=== PATIENT | female | born 1980 | race African-American/Black ===

== ENCOUNTER 2019-08-23 20:43 | Emergency (ER) | payer OTHER, SELFPAY ==
[2019-08-23 20:45] VITALS: BP 141/85; PULSE 95; RESP 20; TEMP 36.4; O2SAT 100
--- NOTE | 2019-08-23 20:50 | ED.GENADULT ---
HPI - General Adult General Chief complaint: Unspecified Stated complaint: Possible medication sideeffects Time Seen by Provider: 08/23/19 20:50 Source: patient and RN notes reviewed Mode of arrival: other Limitations: no limitations History of Present Illness HPI narrative: Pt is a 38 y/o female who presents to the ED with c/o possible side effects from her antidepressant medication. Pt states that her sx began an hour ago. Pt has been taking Escitalopram Oxalate and she is on day 5. Pt took her last pill at 8:30 AM today. She notes that she feels as if she is having a panic attack. Pt had a hysterectomy [address] Israel. Pt is pre-menopausal. Pt denies drinking caffeine today, but she notes that she has been drinking plenty of water. Pt also reports hot flashes, dizziness, rapid heart rate, dry mouth, chills, and anxiety, but denies chest pain, fever, sore throat, cough, rhinorrhea, dysuria, frequent urination, diaphoresis, back pain, neck pain, and N/V/D. complaint: Possible side effect from medication Onset (ago): hour(s) (1) Severity: mild Associated symptoms: fever/chills and other (hot flashes, dizziness, rapid heart rate, dry mouth, anxiety) Related Data Home Medications Medication Instructions Recorded Confirmed escitalopram oxalate 5 mg PO DAILY 08/23/19 08/23/19 Allergies Allergy/AdvReac Type Severity Reaction Status Date / Time No Known Allergies Allergy Verified 08/23/19 20:57 Review of Systems Review of Systems: All systems reviewed & are unremarkable except as noted in HPI and below Constitutional: Constitutional: Reports chills, Denies fever(s) and Reports other (hot flashes) ENT: Reports dry mouth, Denies sore throat and Denies other (rhinorrhea) Cardiovascular: Cardiovascular: Denies chest pain, Denies diaphoresis and Reports rapid heart rate Gastrointestinal: Gastrointestinal: Denies diarrhea, Denies nausea and Denies vomiting Genitourinary: Genitourinary: Denies nocturia and Denies dysuria Musculoskeletal: Musculoskeletal: Denies back pain and Denies neck pain Neurologic: Reports dizziness Psychiatric: Psychiatric: Reports anxiety [facility] Past Medical History Medical History (Updated 08/23/19 @ 23:08 by Shabbir Randolph MD) Anemia Anxiety Depression Fibroids Sciatica UTI (urinary tract infection) Surgical History Surgical History (Updated 08/23/19 @ 21:02 by Alicia Cotton) History of hysterectomy History of tubal ligation Social History Social History (Updated 08/23/19 @ 20:58 by Alicia Cotton) Smoking status: Never smoker Gender identity (if verbalized by the patient): Female Exam Narrative: Exam Narrative: GENERAL: Well-appearing, well-nourished, and in no acute distress. HEAD: Normocephalic, atraumatic. ENT: Mucous membranes moist. CHEST: Clear to auscultation. No respiratory distress. HEART: Regular rate and rhythm. No murmur heard. Normal peripheral pulses. ABDOMEN: Soft, nontender, nondistended. EXTREMITIES: Normal range of motion. No edema. SKIN: Warm, dry, no rash. NEURO: No focal deficits. Alert and oriented x3. Course Course Emergency Course: Looks well. Mildly anxious. Improved with Xanax. May be a side effect of medication. Discussed that she should discontinue the medication should symptoms become worse. Vital Signs Vital signs: Vital Signs Temperature 97.6 F 08/23/19 20:45 Pulse Rate 95 08/23/19 20:45 Respiratory Rate 20 08/23/19 20:45 Blood Pressure 141/85 H 08/23/19 20:45 Pulse Oximetry 100 08/23/19 20:45 Temperature 97.6 F 08/23/19 20:45 Pulse Rate 83 08/23/19 22:00 Respiratory Rate 20 08/23/19 22:00 Blood Pressure 134/84 08/23/19 22:00 Pulse Oximetry 97 08/23/19 22:00 Medical Decision Making Vital Signs Vital Signs: Vital Signs Temperature 97.6 F 08/23/19 20:45 Pulse Rate 95 08/23/19 20:45 Respiratory Rate 20 08/23/19 20:45 Blood Pressure 141/85 H 08/23/19 20
--- NOTE | 2019-08-23 21:05 | ECG_ITS ---
Measurements Intervals [place] Rate: 79 P: 55 ND: 132 QRS: -6 QRSD: 109 T: -5 QT: 393 QTc: 452 Interpretive Statements SINUS RHYTHM INCOMPLETE RIGHT BUNDLE BRANCH BLOCK BORDERLINE ST-T WAVE ABNORMALITY- ANT/INF LEADS BORDERLINE ECG Electronically Signed On 08-24-2019 8:15:06 [employer] LAPPER by Clifford Chance D.O.
[2019-08-23] MEDS: ALPRAZOLAM 0.25 MG TABLET 0.5 MG PO (21:16)
[2019-08-23 21:24] LABS: Basophils Percent Auto 0.4 % (0.2-1.2); Eosinophils Absolute Auto 0.2 K/mm3 (0-0.3); Eosinophils Percent Auto 2.7 % (0-4.4); Hematocrit 35.7 % (37.0-47.0); Hemoglobin 11.5 g/dL (12.0-15.0); Immature Granulocyte Absolute 0.01 K/mm3 (0.00-0.031); Immature Granulocyte Percent A 0.1 % (0-0.5); Lymphocytes Absolute Auto 2.66 K/mm3 (0.9-3.2); Lymphocytes Percent Auto 37.3 % (18.3-44.2); Mean Corpuscular HGB Conc 32.2 g/dl (32-36); Mean Corpuscular Hemoglobin 26.8 pg (26-34); Mean Corpuscular Volume 83.2 fl (80-100); Mean Platelet Volume 8.8 fl (7.4-10.4); Monocytes Absolute Auto 0.5 K/mm3 (0.1-0.6); Monocytes Percent Auto 6.7 % (2.6-8.5); Neutrophils Absolute Auto 3.8 K/mm3 (1.3-6.7); Neutrophils Percent Auto 52.8 % (45.5-73.1); Platelet Count Result 375 k/mm3 (150-375); Red Blood Count 4.29 M/mm3 (4.2-5.4); Red Cell Distribution Width 13.5 % (11.5-14.5); White Blood Count 7.1 K/mm3 (4.5-10.0)
[2019-08-23 21:36] LABS: Blood Urea Nitrogen 13 mg/dL (7-17); Carbon Dioxide 27 mmol/L (22-30); Chloride 99 mmol/L (98-107); Estimated Glomerular Filt Rate > 60; Glucose 131 mg/dL (65-105); Potassium 4.1 mmol/L (3.4-5.0); Sodium 138 mmol/L (137-145)
[2019-08-23 22:00] VITALS: BP 134/84; PULSE 83; RESP 20; O2SAT 97
[2019-08-23 23:26] VITALS: BP 129/77; PULSE 77; RESP 18; O2SAT 98
== END 2019-08-23 23:27 | disposition home or self-care (01) ==
PROVIDERS: Emergency Provider Emergency Medicine; PCP Nurse Practitioner Family
DX: F41.9 Anxiety disorder, unspecified (principal); R42 Dizziness and giddiness; D64.9 Anemia, unspecified; F32.9 Major depressive disorder, single episode, unspecified; Z87.440 Personal history of urinary (tract) infections; I45.10 Unspecified right bundle-branch block; R94.31 Abnormal electrocardiogram [ECG] [EKG]
CPT/HCPCS: 36415; 80048; 85025; 93005; 99283; A9270